=== PATIENT | female | born 1995 | race Hispanic/Latino ===

== ENCOUNTER 2021-09-02 21:45 | Emergency (ER) | payer SELFPAY ==
[~2021-09-02] VITALS: Ht 165.1 cm; Wt 144.0 kg
[2021-09-02] MEDS ORDERED: ESCITALOPRAM OX10 MG PO (23:23)
== END 2021-09-03 01:30 | disposition home or self-care (01) ==
LOC: ED 21:45
DX: R10.31 Right lower quadrant pain (principal); E66.9 Obesity, unspecified; Z79.899 Other long term (current) drug therapy
CPT/HCPCS: 36415; 74177; 80053; 81001; 83690; 84703; 85025; 99284-25; Q9967